=== PATIENT | male | born 2000 | race Two or more races ===

== ENCOUNTER 2024-10-02 03:40 | Emergency (ER) | payer BC, MEDICAID, SELFPAY ==
[2024-10-02 03:41] VITALS: BMI 38.9
[2024-10-02 03:52] VITALS: BP 130/80; PULSE 108; RESP 20; TEMP 39.5; O2SAT 98
[2024-10-02 04:01] VITALS: TEMP 39.5
[2024-10-02] MEDS: ACETAMINOPHEN 500 MG TABLET 1000 MG PO (04:01)
[2024-10-02 04:02] VITALS: TEMP 39.5
[2024-10-02] MEDS: IBUPROFEN TAB 400 MG TABLET 800 MG PO (04:02)
--- NOTE | 2024-10-02 04:09 | PD.EDURI ---
Upper Respiratory Inf. RME/HPI General Chief Complaint: Fever Stated Complaint: FEVER AT HOME 104.9 Time Seen by Provider: 10/02/24 03:55 Arrival date/time: 10/02/24 03:40 23M with history of asthma presents to ED with 3 days of cough, sore throat, fevers/chills, and body aches. Limitations: no limitations Related Data Previous Rx's ?Medication ?Instructions ?Recorded ibuprofen 600 mg tablet 600 mg PO Q6HR PRN PAIN #40 tabs 09/05/16 Allergies Allergy/AdvReac Type Severity Reaction Status Date / Time No Known Allergies Allergy Unknown Verified 10/02/24 03:43 Review of Systems Review of Systems Systems Reviewed: All systems reviewed, normal except as documented Constitutional Constitutional: Reports system reviewed and no additional complaints, except as documented, Reports as per HPI, Reports body ache(s), Reports chills, Reports fever(s) and Denies headache(s) ENT Ears, Nose, Mouth, and Throat: Reports as per HPI, Denies disequilibrium, Denies headache(s) and Reports sore throat Cardiovascular Cardiovascular: Reports system reviewed and no additional complaints, except as documented, Denies chest pain and Denies dyspnea Respiratory Respiratory: Reports system reviewed and no additional complaints, except as documented, Reports as per HPI, Reports cough and Denies dyspnea Gastrointestinal Gastrointestinal: Reports system reviewed and no additional complaints, except as documented, Denies abdominal pain, Denies nausea and Denies vomiting Neurologic Neurologic: Reports system reviewed and no additional complaints, except as documented, Denies confusion, Denies disequilibrium and Denies headache(s) Psychiatric Psychiatric: Denies confusion Past Medical History Past Medical History NEUROLOGIC: Negative Neurological Disorders, Cerebrovascular Accident or Alzheimer's Disease CARDIAC: Negative Myocardial Infarction or Angina RESPIRATORY: Negative Chronic Obstructive Pulmonary Disease (COPD) or Emphysema GASTROINTESTINAL: Negative Liver Cancer or Pancreatic Cancer GENITOURINARY: Negative Genitourinary Disorders MUSCULOSKELETAL: Negative Musculoskeletal Disorders or Muscular Dystrophy ENDOCRINE: Negative Endocrine Disorders, Diabetes Mellitus Type 1 or Diabetes Mellitus Type 2 OTHER HISTORY: Negative Autoimmune Disease, Down Syndrome or Developmental Delay Social History SMOKING STATUS: Never smoker ED Exam General Limitations: Present no limitations General appearance: Present alert and in no apparent distress Head Head exam: Present atraumatic Eye Eye exam: Present normal appearance, PERRL and EOMI ENT ENT exam: Present normal exam, normal oropharynx and mucous membranes moist Neck Neck exam: Present normal inspection, full ROM and trachea midline Chest Chest inspection: Present normal inspection and symmetric chest wall rise Respiratory Respiratory exam: Present normal lung sounds bilaterally Cardiovascular Cardiovascular exam: Present regular rate, normal rhythm and normal heart sounds Abdominal Exam Abdominal exam: Present soft and normal bowel sounds Extremities Exam Extremities exam: Present normal inspection and full ROM Back Exam Back exam: Present normal inspection and full ROM Neurological Exam Neurological exam: Present alert, oriented X3 and CN II-XII intact Psychiatric Psychiatric exam: Present normal affect and normal mood Skin Skin exam: Present warm, dry, intact and normal color Course Quality Measures none Orders Category Date Time Status Bedside Influenza A&B Antigen Test NOW Care 10/02/24 03:42 Completed Acetaminophen Tab [Tylenol ES Tab] Med 10/02/24 03:55 Discontinued 1,000 mg PO X1 ONE Ibuprofen Tab [Motrin Tab] Med 10/02/24 03:55 Discontinued 800 mg PO X1 ONE Vital Signs Vital signs: Vital Signs Temperature 103.1 F H 10/02/24 03:52 Pulse Rate 108 H 10/02/24 03:52 Respiratory Rate 20 10/02/24 03:52 Blood Pressure 130/80 10/02/24 03:52 Pulse Oximetry (%) 98 10/02/24 03:52 Oxygen Delivery Method Room Air 10/02/24 03:52 O2 at 98% on RA and WNLs Upper Respiratory Infection MDM Narrative MDM Narrative:: 23M with history of asthma presents to ED with 3 days of cough, sore throat, fevers/chills, and body aches. Physical exam reveals clear ENT and lungs. Patient is febrile, but does not appear toxic. Flu A+. Patient data External records reviewed:: [facility] previous records Clinical information provided by:: patient Social determinants that could affect healthcare access:: none Patient has the following chronic illnesses:: asthma How is presenting disease/condition affected by chronic disease/condition?: exacerbated by Evaluation data The following diagnostics were reviewed and interpreted by me:: lab results Lab and/or radiology exams considered but not ordered:: ordered Interpretation Summary: above Medications / Prescriptions Medications or Prescriptions considered but not ordered:: ordered Medication administrations:: Medication Administration History Discontinued Medications Acetaminophen (Acetaminophen 500 Mg Tablet) 1,000 mg PO X1 ONE Stop: 10/02/24 03:56 Last Admin: 10/02/24 04:01 Dose: 1,000 mg Documented By: HENRY Ibuprofen (Ibuprofen Tab 400 Mg Tablet) 800 mg PO X1 ONE Stop: 10/02/24 03:56 Last Admin: 10/02/24 04:02 Dose: 800 mg Documented By: HENRY above Consultations Consultation(s) initiated? (list below): No Diagnosis Upper Respiratory Differential Diagnosis: upper respiratory infection, croup, otitis media, sinusitis, viral infection, bronchitis, influenza and pharyngitis Most likely diagnosis given after review of the tests above:: flu A Admission Indicated Admission indicated?: not indicated Admission Request Was there a request for admission?: No Disposition Plan Disposition Plan: Discharge Discharge Attestation Discharge Attestation: The patient and all family members were given an opportunity to ask questions and understood the discharge instructions. Discharge instructions specifically effects, indications for sooner follow up or return to the emergency department, and the expected course of current diagnosis. Patient condition: Stable Discharge Plan Plan Patient Disposition: HOME (Self Care) Disposition Comment: Stable Prescriptions/Referrals Prescriptions/Med Rec: No Action ibuprofen 600 MG tablet 600 mg PO Q6HR PRN (Reason: PAIN) Qty: 40 0RF Problem List Clinical Impression: Influenza A Patient/Caregiver Discharge Instructions Education Materials: ED Influenza (Adult) Additional Instructions: Please follow-up with PCP within 24-48 hours and return immediately if symptoms worsen. Ibuprofen/Tylenol can be used simultaneously for greater fever/pain control. Benadryl is good for cough, congestion, and sleep. Print Language: Austrian Stand Alone Forms: Patient Portal Info Letter FABY/DILPI Supervising Physician FABY/DILIP Supervising Physician: Dr. Perez
[2024-10-02 05:25] VITALS: PULSE 95; RESP 17; TEMP 37.6; O2SAT 100
== END 2024-10-02 05:33 | disposition home or self-care (01) ==
LOC: SERX 06:41
PROVIDERS: Emergency Provider Emergency Medicine; PCP Family Medicine
DX: J10.1 Influenza due to other identified influenza virus with other respiratory manifestations (principal); J45.909 Unspecified asthma, uncomplicated
CPT/HCPCS: 87400; 99283; A9270